=== PATIENT | female | born 1960 | race African-American/Black ===

== ENCOUNTER 2021-10-12 12:14 | Day surgery (SDC) | payer BC | END 2021-10-12 13:54 | disposition home or self-care (01) | LOC: CSHSDC/OP 12:14 | PROVIDERS: ATTEND Family Medicine | DX: Z23 Encounter for immunization (principal); U07.1 COVID-19 | CPT/HCPCS: 96365; J3490; M0243; Q0244 ==

== ENCOUNTER 2023-09-08 08:48 | Outpatient (CLI) | payer MEDICARE, BC | END 2023-09-08 08:49 | disposition home or self-care (01) | LOC: CSHMAMMO 08:48 | PROVIDERS: ATTEND Family Medicine | DX: Z12.31 Encounter for screening mammogram for malignant neoplasm of breast (principal); Z91.89 Other specified personal risk factors, not elsewhere classified | CPT/HCPCS: 77063; 77067 ==

== ENCOUNTER 2024-09-10 10:51 | Outpatient (CLI) | payer MEDICARE | END 2024-09-10 10:52 | disposition home or self-care (01) | LOC: CSHMAMMO 10:51 | PROVIDERS: ATTEND Family Medicine | DX: Z12.31 Encounter for screening mammogram for malignant neoplasm of breast (principal); Z91.89 Other specified personal risk factors, not elsewhere classified | CPT/HCPCS: 77063; 77067 ==